=== PATIENT | female | born 1970 | race Caucasian/White ===

== ENCOUNTER → 2019-02-03 | Outpatient (CLI) | payer OTHER ==
[~2019-02-03] MED LIST: AMLODIPINE-BEN1 EAC5 PO; CLONAZEPAM 0.50.5 M1 PO; HYDROCODONE-AP1 EAC6 PO; IBUPROFEN 800800 M1 PO; KLONOPIN0.5 MG; LOPRESSOR50 PO; LOTREL 5-10 MG1 EACH; METOPROLOL SUCC50 MG; MYLANTA TABLET1 TA1 PO; NYSTATIN15 GM TP; PRILOSEC20 MG PO; TOPROL XL50 MG PO; TRIAMTERENE-HC1 EAC2 PO; TRIAMTERENE25 GM
== END ==
LOC: CAT 12:47
DX: Z13.6 Encounter for screening for cardiovascular disorders (principal); E78.00 Pure hypercholesterolemia, unspecified; I25.10 Atherosclerotic heart disease of native coronary artery without angina pectoris